=== PATIENT | female | born 1950 | race Caucasian/White ===

== ENCOUNTER 2018-04-05 16:41 | Emergency (ER) | payer MEDICARE ==
[2018-04-05 17:00] VITALS: BMI 24.2
[2018-04-05] MEDS ORDERED: morphine CARPU-JECT 2 MG/1 ML DISP.SYRIN IVPUSH ONE (17:49)
--- NOTE | 2018-04-05 17:49 | PDOC ---
History of Present Illness - General Chief Complaint: Nausea/Vomiting Stated Complaint: VOMITING Time Seen by Provider: 04/05/18 16:52 History Source: Patient - History of Present Illness Initial Comments: 04/05/18 17:48 67f with pmh of HTN, HLD and 2x abdominal hernia repair 4 years ago presents to the ED for diffuse abdominal pain and vomiting for the past 4 days. Unable to keep anything down. Told by Angelo Patel that she had diverticulitis. Able to move her bowels with difficulty. Last time was this morning. No history of gallstones. Denies fever 04/05/18 19:47 Past History - Past Medical History Allergies/Adverse Reactions: Allergies Allergy/AdvReac Type Severity Reaction Status Date / Time No Known Allergies Allergy Verified 09/01/11 16:31 Home Medications: Ambulatory Orders Atorvastatin Ca [Lipitor] 40 mg PO HS 04/05/18 COPD: No CHF: No HTN: Yes Hypercholesterolemia: Yes - Immunization History Immunization Up to Date: No - Suicide/Smoking/Psychosocial Hx Smoking Status: No Smoking History: Never smoked Have you smoked in the past 12 months: No Number of Cigarettes Smoked Daily: 0 Information on smoking cessation initiated: No Hx Alcohol Use: No Drug/Substance Use Hx: No Review of Systems - Review of Systems Able to Perform ROS?: Yes Constitutional: Yes: Loss of Appetite. No: Chills, Fever, Night Sweats HEENTM: No: Symptoms Reported Respiratory: No: Symptoms reported Cardiac (ROS): No: Symptoms Reported ABD/GI: Yes: See HPI, Constipated, Nausea, Poor Fluid Intake, Vomiting : No: Symptoms Reported Musculoskeletal: No: Symptoms Reported Integumentary: No: Symptoms Reported All Other Systems: Reviewed and Negative *Physical Exam - Vital Signs Last Vital Signs Temp Pulse Resp BP Pulse Ox 98.4 F 74 16 146/63 98 04/05/18 16:57 04/05/18 16:57 04/05/18 16:57 04/05/18 16:57 04/05/18 16:57 - Physical Exam General Appearance: Yes: Nourished, Appropriately Dressed, Obese. No: Apparent Distress HEENT: positive: EOMI, PATT, Normal ENT Inspection Respiratory/Chest: positive: Lungs Clear, Normal Breath Sounds. negative: Chest Tender, Respiratory Distress Cardiovascular: positive: Regular Rhythm, Regular Rate, S1, S2 Gastrointestinal/Abdominal: positive: Normal Bowel Sounds, Tender (diffuse, more so in upper right quadrant. ) Musculoskeletal: positive: Normal Inspection. negative: CVA Tenderness Extremity: positive: Normal Capillary Refill, Normal Inspection, Normal Range of Motion Integumentary: positive: Normal Color, Dry, Warm Neurologic: positive: Fully Oriented, Alert, Normal Mood/Affect, Normal Response , Motor Strength 10/21 ED Treatment Course - LABORATORY CBC & Chemistry Diagram: 04/05/18 17:54 04/05/18 17:54 Medical Decision Making - Medical Decision Making 04/05/18 17:58 Small bowel obstuction vs gallstones vs gastritis. POCUS negative for gasllstones. CT negative for acute processes. Possible pancreatic duct enlargement will need outpatient MRCP. Will dc with follow up with Dr. Davies 04/06/18 01:14 *DC/Admit/Observation/Transfer Diagnosis at time of Disposition: Abdominal pain - Discharge Dispostion Disposition: HOME Condition at time of disposition: Stable - Referrals Referrals: Twan Stephens MD [Staff Physician] - Rich Harding MD [Primary Care Provider] - - Patient Instructions Printed Discharge Instructions: Acute Abdominal Pain Additional Instructions: you should follow up with your binder selector as your pancreatic duct is abnormal. call to schedule . you should also follow up with your primary doctor. return for any worsenign pain. vomiting or any other concerns. - Post Discharge Activity
[2018-04-05] MEDS ORDERED: ONDANSETRON 4 MG/2 ML VIAL IVPUSH ONE (17:50)
[2018-04-05] MEDS ORDERED: MORPHINE SULFATE 2 MG/ML VIAL ONE (17:55)
[2018-04-05] MEDS ORDERED: ONDANSETRON 4 MG/2 ML VIAL ONE (17:55)
[2018-04-05] MEDS ORDERED: SODIUM CHLORIDE 1,000 ML IV STA (17:56)
[2018-04-05 18:45] LABS: BASO % 0.5 % (0-2.0); EOS % 0.4 % (0-4.5); HEMATOCRIT 41.5 % (32.4-45.2); HEMOGLOBIN 13.8 GM/dL (10.7-15.3); LYMPH % 24.5 % (8-40); MCH 28.9 pg (25.7-33.7); MCHC 33.4 g/dl (32.0-36.0); MEAN CELL VOLUME 86.6 fl (80-96); MONO % 6.5 % (3.8-10.2); NEUT % 68.1 % (42.8-82.8); PLATELET COUNT 283 K/MM3 (134-434); RBC 4.79 M/mm3 (3.60-5.2); RDW 13.6 % (11.6-15.6); WHITE BLOOD COUNT 9.8 K/mm3 (4.0-10.0)
[2018-04-05 18:56] LABS: URINE APPEARANCE CLEAR; URINE BILIRUBIN NEGATIVE (<2.0 mg/dL); URINE COLOR STRAW; URINE GLUCOSE (UA) NEGATIVE (NEGATIVE); URINE KETONE NEGATIVE (NEGATIVE); URINE LEUK ESTERASE NEGATIVE (NEGATIVE); URINE NITRITE NEGATIVE (NEGATIVE); URINE PROTEIN NEGATIVE (NEGATIVE); URINE UROBILINOGEN NEGATIVE mg/dL (0.2-1.0)
[2018-04-05 18:57] LABS: ALBUMIN 4.2 g/dl (3.4-5.0); ALK PHOS 72 U/L (45-117); ANION GAP 5 MMOL/L (8-16); BILIRUBIN,TOTAL 0.5 mg/dL (0.2-1); BLOOD UREA NITROGEN 15 mg/dL (7-18); CALCIUM 9.7 mg/dL (8.5-10.1); CHLORIDE 107 mmol/L (98-107); CO2 25 mmol/L (21-32); CREATININE 0.6 mg/dL (0.55-1.3); GLUCOSE,RANDOM 80 mg/dL (74-106); POTASSIUM 4.4 mmol/L (3.5-5.1); SGOT/AST 24 U/L (15-37); SGPT/ALT 27 U/L (13-61); SODIUM 138 mmol/L (136-145); TOT PROT 7.7 g/dl (6.4-8.2)
[2018-04-06 00:56] LABS: LIPASE 189 U/L (73-393)
--- NOTE | 2018-04-06 01:07 | PDOC ---
Attending Attestation - Resident Resident Name: Duong Ngo - ED Attending Attestation I have performed the following: I have examined & evaluated the patient, The case was reviewed & discussed with the resident, I agree w/resident's findings & plan, Exceptions are as noted - Physicial Exam PE: 04/06/18 01:05 awake alert lungs clear bilaterlly heart rrr no mrg. abd soft ruq epigastric ttp no rebound no guarding. suprapubic scar cdi, no erythema. no bulging or palp hernia. - Medical Decision Making 04/06/18 01:05 differential art, dilacted duct, gastritis, pyelo, uti, plan ct a/p focused ED ultrasound ruq, gallbladder scanned in two planes. no stones. no wall thickening. normal cbd. impression: normal gallbladder. ct unremarkalbe. pt labs normal ua negative. feels improve.d will dc home. noted dilat pancreatic duct. rec outpt [facility]p. pt will follow upwith gi dr. martin. <Lashon Gonzales - Last Filed: 04/06/18 01:04> - HPI HPI: 04/06/18 01:12 The patient is a 67 year old female with a significant past medical history of HTN, HLD and 2 abdominal hernia repair (4 years ago) who presents to the ED with 4 days of abdominal pain. Patient reports diffuse abdominal pain, worsened in the right upper quadrant. She also reports multiple episodes of nonbloody vomiting and unable to keep anything down. Last bowel movement was this morning and normal. Denies fever or chills. Denies chest pain or shortness of breath. Denies any other symptoms. <Prince Musa - Last Filed: 04/06/18 01:12> Attestations - Attestations 04/06/18 01:12 Documentation prepared by Prince Musa, acting as medical technicians for Lashon Gonzales MD. <Prince Musa - Last Filed: 04/06/18 01:12>
[2018-04-06 02:09] VITALS: BP 135/69; PULSE 88; TEMP 98.6
== END 2018-04-06 02:09 | disposition home or self-care (01) ==
LOC: JER 16:41
PROC: 3E0337Z Introduction of Electrolytic and Water Balance Substance into Peripheral Vein, Percutaneous Approach (ICD-10-PCS; principal; 2018-04-05)
PROC: 3E033NZ Introduction of Analgesics, Hypnotics, Sedatives into Peripheral Vein, Percutaneous Approach (ICD-10-PCS; 2018-04-05)
PROC: 3E033GC Introduction of Other Therapeutic Substance into Peripheral Vein, Percutaneous Approach (ICD-10-PCS; 2018-04-05)
DX: R10.9 Unspecified abdominal pain (principal); I10 Essential (primary) hypertension; E78.5 Hyperlipidemia, unspecified; E78.00 Pure hypercholesterolemia, unspecified
CPT/HCPCS: 36415; 74177-TC; 80053; 81003; 83605; 83690; 85025; 99283-25; J7030

== ENCOUNTER 2018-09-30 02:48 | Emergency (ER) | payer MEDICARE, OTHER ==
--- NOTE | 2018-09-30 02:58 | PDOC ---
History of Present Illness - General Chief Complaint: Pain, Acute Stated Complaint: ABD PAIN Time Seen by Provider: 09/30/18 02:58 - History of Present Illness Initial Comments: 68 year old female with PMH of HTN, HLD, depression and 2x abdominal hernia repair 4 years ago presents to the ED for shaking, lower abdominal pain, and nausea. Patient states that she was recently diagnosed with diverticulitis and is taking an antibiotic which she cannot recall for it. Her abdominal pain has improved since taking the medications but it is still there to some degree. The concerning issue for her is that she is taking a lot of medications and feels that it is difficult to keep track of all of her medications. Furthermore, she began to have palpitations. She is concerned that her symptoms are related to her medications. Denies fevers, chills, diarrhea, constipation, chest pain, sob , or other symptoms. Of note, she is taking her depression medication incorrectly. States that she takes her Paxil "as needed when she feels down". 09/30/18 02:59 Past History - Past Medical History Allergies/Adverse Reactions: Allergies Allergy/AdvReac Type Severity Reaction Status Date / Time No Known Allergies Allergy Verified 09/30/18 02:55 Home Medications: Ambulatory Orders Atorvastatin Ca [Lipitor] 40 mg PO HS 04/05/18 COPD: No CHF: No HTN: Yes Hypercholesterolemia: Yes - Immunization History Immunization Up to Date: No - Suicide/Smoking/Psychosocial Hx Smoking Status: No Smoking History: Never smoked Have you smoked in the past 12 months: No Number of Cigarettes Smoked Daily: 0 Information on smoking cessation initiated: No Hx Alcohol Use: No Drug/Substance Use Hx: No Review of Systems - Review of Systems Constitutional: No: Chills, Diaphoresis, Fever HEENTM: No: Eye Pain, Blurred Vision, Tearing Respiratory: No: Cough, Orthopnea, Shortness of Breath Cardiac (ROS): No: Chest Pain, Irregular Heart Rate ABD/GI: Yes: Nausea, Poor Appetite, Vomiting. No: Constipated, Diarrhea : No: Burning, Dysuria, Discharge Musculoskeletal: No: Back Pain, Joint Swelling Neurological: No: Headache, Numbness Psychiatric: Yes: Anxiety, Depression Hematologic/Lymphatic: No: Anemia, Blood Clots, Easy Bleeding *Physical Exam - Vital Signs Last Vital Signs Temp Pulse Resp BP Pulse Ox 98.6 F 88 20 134/77 99 09/30/18 02:55 09/30/18 02:55 09/30/18 02:55 09/30/18 02:55 09/30/18 02:55 ED Treatment Course - LABORATORY CBC & Chemistry Diagram: 09/30/18 03:30 09/30/18 03:30 Medical Decision Making - Medical Decision Making 68 year old female with history of abdominal surgeries, recent diagnosis of diverticulitis (on abx), and depression (poorly compliant with medications) presneting with jitteriness and lower abdominal pain. Unsure as to which medication could have caused her shaking but she does admit to anxiety and depression with poor compliance with her antidepressant. She is on antibiotics for her diverticulitis and states that her pain is improved. We have no CT scan of proof of her diverticulitis so we will pursue CT scan with PO contrast ( allergy to IV contrast). [facility]. 09/30/18 06:36 *DC/Admit/Observation/Transfer Diagnosis at time of Disposition: Abdominal pain Qualifiers: Abdominal location: lower abdomen, unspecified Qualified Code(s): R10.30 - Lower abdominal pain, unspecified - Discharge Dispostion Condition at time of disposition: Stable - Referrals Referrals: Rich Harding MD [Primary Care Provider] - - Patient Instructions - Post Discharge Activity
[2018-09-30] MEDS ORDERED: FAMOTIDINE 20 MG/50 ML IVPB 20 MG/50 ML MG IVPB ONE ×2 (03:14→03:34)
[2018-09-30] MEDS ORDERED: MAG HYDROX/AL HYDROX/SIMETH 30 ML UNIT-DOSE CUP PO ONE (03:14)
--- NOTE | 2018-09-30 03:15 | PDOC ---
Attending Attestation - Resident Resident Name: Kandy Flanagan - ED Attending Attestation I have performed the following: I have examined & evaluated the patient, The case was reviewed & discussed with the resident, I agree w/resident's findings & plan - HPI HPI: 09/30/18 05:35 Pt was diagnosed with diverticulitis by EVIN vergara; she was treated with 500mg abx (levaquin/flagyl) she had cataract surg on Mon and felt nauseous after the operation. Vomited Thurs and could't take her abx. Her Dr. Stephens prescribed antiemetic and she felt better. The following days he was sweating and feeling ill. Today she had chills and felt afraid and came in. - Physicial Exam PE: 09/30/18 05:36 Agree with resident exam. - Medical Decision Making 09/30/18 05:36 Labs normal Pt has minimally elevates AST and ALT; alk phos and lipase normal. 09/30/18 05:37 Pt will be given a dose of IV abx. She will hava a CT abd pelvis repeated to r/ o diverticulitis/colitis. 09/30/18 19:40 Pt signed out to the day team
[2018-09-30 03:26] VITALS: TEMP 98.6; BMI 30.9
[2018-09-30] MEDS ORDERED: MAG HYDROX/AL HYDROX/SIMETH 30 ML UNIT-DOSE CUP ONE (03:33)
[2018-09-30 03:37] LABS: BASO % 0.9 % (0-2.0); EOS % 0.4 % (0-4.5); HEMATOCRIT 37.6 % (32.4-45.2); HEMOGLOBIN 12.9 GM/dL (10.7-15.3); MCH 29.9 pg (25.7-33.7); MCHC 34.3 g/dl (32.0-36.0); MEAN CELL VOLUME 87.2 fl (80-96); MEAN PLT VOLUME 7.8 fl (7.5-11.1); MONO % 6.9 % (3.8-10.2); NEUT % 72.8 % (42.8-82.8); PLATELET COUNT 217 K/MM3 (134-434); RBC 4.32 M/mm3 (3.60-5.2); RDW 13.2 % (11.6-15.6); WHITE BLOOD COUNT 8.9 K/mm3 (4.0-10.0)
[2018-09-30 03:52] LABS: INR 0.98 (0.83-1.09); PROTHROMBIN TIME (PATIENT) 11.6 SEC (9.7-13.0)
[2018-09-30 04:01] LABS: AMYLASE 66 U/L (25-115); LIPASE 235 U/L (73-393)
[2018-09-30 04:07] LABS: ALBUMIN 3.9 g/dl (3.4-5.0); ALK PHOS 68 U/L (45-117); ANION GAP 7 MMOL/L (8-16); BILIRUBIN,TOTAL 0.3 mg/dL (0.2-1); BLOOD UREA NITROGEN 12 mg/dL (7-18); CALCIUM 9.2 mg/dL (8.5-10.1); CHLORIDE 107 mmol/L (98-107); CO2 25 mmol/L (21-32); CREATININE 0.8 mg/dL (0.55-1.3); GLUCOSE,RANDOM 104 mg/dL (74-106); POTASSIUM 4.2 mmol/L (3.5-5.1); SGOT/AST 66 U/L (15-37); SGPT/ALT 77 U/L (13-61); SODIUM 139 mmol/L (136-145)
--- NOTE | 2018-09-30 07:12 | PDOC ---
*Physical Exam - Vital Signs Last Vital Signs Temp Pulse Resp BP Pulse Ox 98.6 F 88 20 134/77 99 09/30/18 02:55 09/30/18 02:55 09/30/18 02:55 09/30/18 02:55 09/30/18 02:55 ED Treatment Course - LABORATORY CBC & Chemistry Diagram: 09/30/18 03:30 09/30/18 03:30 - ADDITIONAL ORDERS Additional order review: Laboratory Results 09/30/18 09/30/18 09/30/18 03:30 03:30 03:30 PT with INR INR Sodium 139 Potassium 4.2 Chloride 107 Carbon Dioxide 25 Anion Gap 7 L BUN 12 Creatinine 0.8 Creat Clearance w eGFR 71.33 Random Glucose 104 Calcium 9.2 Total Bilirubin 0.3 AST 66 H ALT 77 H Alkaline Phosphatase 68 Troponin I < 0.02 Total Protein 7.0 Albumin 3.9 Total Amylase 66 Lipase 235 09/30/18 03:30 PT with INR 11.60 INR 0.98 Sodium Potassium Chloride Carbon Dioxide Anion Gap BUN Creatinine Creat Clearance w eGFR Random Glucose Calcium Total Bilirubin AST ALT Alkaline Phosphatase Troponin I Total Protein Albumin Total Amylase Lipase 09/30/18 03:30 RBC 4.32 MCV 87.2 MCHC 34.3 RDW 13.2 MPV 7.8 Neutrophils % 72.8 Lymphocytes % 19.0 D Monocytes % 6.9 Eosinophils % 0.4 Basophils % 0.9 - Medications Given in the ED: ED Medications Discontinued Medications Generic Name Dose Route Start Last Admin Trade Name Freq PRN Reason Stop Dose Admin Al Hydroxide/Mg Hydroxide 30 ml 09/30/18 03:14 09/30/18 03:38 Mylanta Oral Suspension - PO 09/30/18 03:15 30 ml ONCE ONE Administration Famotidine/Sodium Chloride 20 mg in 50 mls @ 100 mls/hr 09/30/18 03:14 03:38 Pepcid 20 Mg Premixed Ivpb - IVPB 09/30/18 03:43 100 mls/hr ONCE ONE Administration Metronidazole 500 mg in 100 mls @ 100 mls/hr 09/30/18 05:33 09/30/18 05:52 Flagyl 500mg Premixed Ivpb - IVPB 09/30/18 06:32 100 mls/hr ONCE ONE Administration Levofloxacin 500 mg in 100 mls @ 100 mls/hr 09/30/18 05:32 09/30/18 05:52 Levaquin 500 Mg Premixed Ivpb - IVPB 09/30/18 06:31 100 mls/hr ONCE ONE Administration Protocol Medical Decision Making - Medical Decision Making 09/30/18 07:08 68 year old female with PMH HTN, HLD, depression, abdominal hernia repair (X2, 4 years ago), recent diagnosis of diverticulitis presented to ED for lower abdominal pain with anusea. She stated she has been taking antibiotics for her diverticulitis, and since then her pain has been improving. She has not been taking her antidepressant medication as prescribed, and has been feeling anxious /depressed with palpitations. Initial Vital Signs Temp Pulse Resp BP Pulse Ox 98.6 F 88 20 134/77 99 09/30/18 02:55 09/30/18 02:55 09/30/18 02:55 09/30/18 02:55 09/30/18 02:55 Afebrile. No tachycardia. No tachypnea. No hypotension. No hypoxia on room air. EKG performed at 0400: rate 71, regular rhythm, normal axis, normal intervals, flat T in III, otherwise no ST changes. CBC WBC 8.9 K/mm3 (4.0-10.0) 09/30/18 03:30 RBC 4.32 M/mm3 (3.60-5.2) 09/30/18 03:30 Hgb 12.9 GM/dL (10.7-15.3) 09/30/18 03:30 Hct 37.6 % (32.4-45.2) 09/30/18 03:30 MCV 87.2 fl (80-96) 09/30/18 03:30 MCH 29.9 pg (25.7-33.7) 09/30/18 03:30 MCHC 34.3 g/dl (32.0-36.0) 09/30/18 03:30 RDW 13.2 % (11.6-15.6) 09/30/18 03:30 Plt Count 217 K/MM3 (134-434) D 09/30/18 03:30 MPV 7.8 fl (7.5-11.1) 09/30/18 03:30 Absolute Neuts (auto) 6.4 K/mm3 (1.5-8.0) 09/30/18 03:30 Neutrophils % 72.8 % (42.8-82.8) 09/30/18 03:30 Lymphocytes % 19.0 % (8-40) D 09/30/18 03:30 Monocytes % 6.9 % (3.8-10.2) 09/30/18 03:30 Eosinophils % 0.4 % (0-4.5) 09/30/18 03:30 Basophils % 0.9 % (0-2.0) 09/30/18 03:30 Nucleated RBC % 0 % (0-0) 09/30/18 03:30 No leukocytosis. No anemia. CMP Sodium 139 mmol/L (136-145) 09/30/18 03:30 Potassium 4.2 mmol/L (3.5-5.1) 09/30/18 03:30 Chloride 107 mmol/L (98-107) 09/30/18 03:30 Carbon Dioxide 25 mmol/L (21-32) 09/30/18 03:30 Anion Gap 7 MMOL/L (8-16) L 09/30/18 03:30 BUN 12 mg/dL (7-18) 09/30/18 03:30 Creatinine 0.8 mg/dL (0.55-1.3) 09/30/18 03:30 Creat Clearance w eGFR 71.33 (>60) 09/30/18 03:30 Random Glucose 104 mg/dL (74-106) 09/30/18 03:30 Calcium 9.2 mg/dL (8.5-10.1) 09/30/18 03:30 Total Bilirubin 0.3 mg/dL (0.2-1) 09/30/18 03:30 AST 66 U/L (15-37) H 09/30/18 03:30 ALT 77 U/L (13-61) H 09/30/18 03:30 Alkaline Phosphatase 68 U/L (45-117) 09/30/18 03:30 Troponin I < 0.02 ng/ml (0.00-0.05) 09/30/18 03:30 Total Protein 7.0 g/dl (6.4-8.2) 09/30/18 03:30 Albumin 3.9 g/dl (3.4-5.0) 09/30/18 03:30 Total Amylase 66 U/L (25-115) 09/30/18 03:30 Lipase 235 U/L (73-393) 09/30/18 03:30 No electrolyte abnormalities. No ALDEN. Mild transaminitis. Normal bilirubin. Normal lipase. Normal troponin. Pt was given pepcid, maalox, zofran, tylenol with improvement of symptoms. Pending CT abdomen/pelvis with PO contrast. -Pt has allergy to IV contrast. 09/30/18 08:45 CT report: no definite CT findings of acute pathology. colonic diverticulosis without diverticulitis. Pt informed to take her depression medication everyday otherwise it will not work. Pt informed to continue taking her antibiotics she was prescribed. Pt informed to follow up with PCP, GI. Pt discharged. *DC/Admit/Observation/Transfer Diagnosis at time of Disposition: Diverticulosis Abdominal pain Qualifiers: Abdominal location: lower abdomen, unspecified Qualified Code(s): R10.30 - Lower abdominal pain, unspecified - Discharge Dispostion Condition at time of disposition: Improved Decision to Admit order: No - Referrals Referrals: Rich Harding MD [Primary Care Provider] - - Patient Instructions Printed Discharge Instructions: DI for Depression -- Adult, DI for Anxiety -- Adult, DI for Diverticulosis Additional Instructions: You were seen today for abdominal pain. Your lab work was normal. Your CT imaging showed diverticulosis, without diverticulitis. Your colon appears to be healing. Continue taking all antibiotics and medications you have been prescribed. Take your depression medication as prescribed. Do not miss doses, as it will not work if you do. It takes multiple weeks of consistent use to be effective. Take Tylenol over the counter for your pain, take as advised on label. 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 Bring all paperwork given to you today with you to your appointment. Return to the Emergency Department for fever, chills, nausea, vomiting, chest pain, shortness of breath, increasing abdominal pain with Tylenol use, lightheadedness like you may pass out, or any other new, worsening or concerning symptoms. [place] TRANSLATION PROVIDED VIA [employer] Te vieron hoy por dolor abdominal. Tu trabajo de laboratorio fue normal. Traore tomografa computarizada mostr diverticulosis, sin diverticulitis. Tu colon parece estar sanando. Contine tomando todos los antibiticos y medicamentos que le hayan recetado. [place] traore medicamento para la depresin segn lo prescrito. No te pierdas las dosis, ya que no funcionar si lo haces. Se requieren varias semanas de uso magdy para ser efectivo. [place] Tylenol sobre el mostrador para el dolor, tmelo pamela se indica en la etiqueta. Candice un seguimiento con traore mdico de atencin primaria y gastroenterlogo en 1- 2 haynes. Lleve todos los documentos que se le entreguen hoy a traore ofelia. Regrese al Departamento de Emergencias para fiebre, escalofros, nuseas, vmitos, dolor de pecho, falta de aliento, aumento del dolor abdominal con el uso de Tylenol, mareo pamela si se desmayara o cualquier otro sntoma nuevo, que empeore o relacionado con los sntomas. - Post Discharge Activity Forms/Work/School Notes: Back to Work
[2018-09-30 07:48] VITALS: BP 136/72; PULSE 70
--- NOTE | 2018-10-01 10:32 | EKG ---
Test Reason : Blood Pressure : / mmHG Vent. Rate : 071 BPM Atrial Rate : 071 BPM P-R Int : 132 ms QRS Dur : 080 ms QT Int : 380 ms P-R-T Axes : 032 -13 029 degrees QTc Int : 412 ms NORMAL SINUS RHYTHM NORMAL ECG WHEN COMPARED WITH ECG OF 16-SEP-2007 23:17, NO SIGNIFICANT CHANGE WAS FOUND Confirmed by LEÓN CORTEZ MD ([id number]) on 10/01/2018 10:32:10 AM Referred By: Hector PANTOJA Confirmed By:LEÓN CORTEZ MD
== END 2018-09-30 09:07 | disposition home or self-care (01) ==
LOC: JER 02:48
DX: K57.90 Diverticulosis of intestine, part unspecified, without perforation or abscess without bleeding (principal); I10 Essential (primary) hypertension; E78.5 Hyperlipidemia, unspecified; F32.9 Major depressive disorder, single episode, unspecified; F41.9 Anxiety disorder, unspecified
CPT/HCPCS: 36415; 74176-TC; 80053; 82150; 83690; 84484; 85025; 85610; 93005; 93010; 96365; 96368; 99283-25

== ENCOUNTER 2020-07-02 21:25 | Emergency (ER) | payer OTHER ==
[2020-07-02 22:01] VITALS: BP 126/79; PULSE 86; TEMP 98.5; BMI 26.5
[2020-07-02] MEDS ORDERED: KETOROLAC TROMETHAMINE 30 MG/1 ML VIAL IM ONE (22:18)
== END 2020-07-02 22:34 | disposition home or self-care (01) ==
LOC: JERFT 21:25 → JER 21:25 → JERFT 22:34
PROC: 3E0233Z Introduction of Anti-inflammatory into Muscle, Percutaneous Approach (ICD-10-PCS; principal; 2020-07-02)
DX: M54.5 Low back pain (principal)
CPT/HCPCS: 99284-25

== ENCOUNTER 2022-10-24 19:30 | Emergency (ER) | payer OTHER ==
[2022-10-24 19:40] VITALS: BP 100/60; PULSE 83; RESP 16; TEMP 98.2; BMI 27.4
== END 2022-10-24 22:43 | disposition home or self-care (01) ==
LOC: JERFT 19:30
DX: M25.572 Pain in left ankle and joints of left foot (principal); R07.82 Intercostal pain; W01.0XXA Fall on same level from slipping, tripping and stumbling without subsequent striking against object, initial encounter
CPT/HCPCS: 71045-TC-FY; 71101-TC-RT-FY; 73610-TC-LT-FY; 99285-25